=== PATIENT | female | born 2000 | race Caucasian/White ===

== ENCOUNTER 2022-06-19 11:02 | Emergency (ER) | payer OTHER, SELFPAY ==
--- NOTE | ~2022-06-19 | XR_ITS ---
EXAMINATION: XR knee LT 3V DATE: 06/19/2022 11:45 INDICATION: Left knee pain and swelling TECHNIQUE: Three views of the left knee were obtained. COMPARISON: None. FINDINGS: Alignment is normal. No fracture or osteochondral lesion. Joint spaces are normal with no e rosions. No joint effusion/synovitis. Soft tissues are unremarkable. IMPRESSION: 1. No acute osseous abnormality. Reviewed, dictated and finalized at location A.
[2022-06-19 11:33] VITALS: BP 104/75; PULSE 85; RESP 16; TEMP 36.6; O2SAT 100
--- NOTE | 2022-06-19 11:45 | ED.EXTPRO ---
HPI - Extremity Problem General Chief complaint: Extremity Problem,Nontraumatic Stated complaint: L KNEE WEAKNESS/BRUISING Source: patient and RN notes reviewed History of Present Illness HPI Narrative: 21-year-old presents to urgent care with left knee pain and swelling. Patient states she just woke up this morning with these symptoms and denies any known injury. Denies any numbness, tingling, fevers, chills, or other complaints. Some parts of this dictation were generated by voice recognition software and may contain typographical and/or grammatical inaccuracies. Related Data Home Medications Medication Instructions Recorded Confirmed norethindrone acetate 1 mg-ethinyl tablet 06/19/22 estradiol 20 mcg tablet Allergies Allergy/AdvReac Type Severity Reaction Status Date / Time No Known Allergies Allergy Verified 06/19/22 11:28 Review of Systems Review of Systems: CONSTITUTIONAL: Denies fever, chills, or sweats. EYES: Denies visual changes, redness, or discharge. ENT: Denies otalgia and sore throat CARDIOVASCULAR: Denies chest pain, palpitations, or edema. RESPIRATORY: Denies cough or dyspnea. GASTROINTESTINAL: Denies abdominal pain, nausea, vomiting, or diarrhea. GENITOURINARY: Denies dysuria or hematuria. SKIN: Denies rash or itching. MUSCULOSKELETAL: Left knee pain and swelling NEUROLOGIC: Denies headache, numbness, or weakness. Pertinent positives per HPI. PMFSH Comments At the time of my signature, I reviewed and agree with the nursing past medical, surgical, social, and family history. There is no relevant family history pertinent to the patient complaint. Exam Narrative: GENERAL: This is a well-nourished, well-developed patient, in no apparent distress. HEAD: normocephalic, atraumatic. EYES: PERRL. Sclera clear/white. Vision is grossly intact. EARS: External ears normal, auditory canals clear and without drainage. Hearing grossly intact. NOSE: External nose normal with no obvious nasal discharge, nares without redness, no rhinorrhea. THROAT: Mucous membranes moist. NECK: Neck supple, non-tender without lymphadenopathy, masses or thyromegaly. CARDIOVASCULAR: Regular rate and rhythm without murmurs, gallops, or rubs. RESPIRATORY: Clear to auscultation. Breath sounds equal bilaterally. No wheezes, rales, or rhonchi. SKIN: warm, intact with no suspicious lesions or rash, good texture and turgor. NEURO: awake, alert, and oriented to person, place and time. There were no obvious focal neurologic abnormalities. EXTREMITIES: left knee mild edema. no specific tenderness. Range of motion intact. Distal pulses present in affected extremity. Course Course Level of Care: Express Care Visit Vital Signs Vital signs: Vital Signs Temperature 98 F 06/19/22 11:33 Pulse Rate 85 06/19/22 11:33 Respiratory Rate 16 06/19/22 11:33 Blood Pressure 104/75 06/19/22 11:33 Pulse Oximetry 100 06/19/22 11:33 Temperature 98 F 06/19/22 11:33 Pulse Rate 85 06/19/22 11:33 Respiratory Rate 16 06/19/22 11:33 Blood Pressure 104/75 06/19/22 11:33 Pulse Oximetry 100 06/19/22 11:33 Reviewed MDM - Extremity (Nontraumatic) MDM Narrative Medical decision making narrative: Use the RICE method at home. May take ibuprofen and/or Tylenol if needed. If symptoms persist in 1 week after conservative treatment, follow-up with the hand specialist. Differential Diagnosis Differential diagnosis: Likely gout and other ( fracture, sprain) Imaging Data Radiologist's impression: [facility] [address] [place] [address] XRay Report Signed Patient: Nirmala Burns : 2000 MR#: [id number] Age/Sex: 21 / F Acct:[id number] Loc: [facility]? ? ADM Date: 06/19/22Attending Dr: Ordering Physician: Sandi Reddy APRN Date of Service: 06/19/22 Procedure(s): XR knee LT 3V Accession Number(s): [id number] cc:
== END 2022-06-19 12:05 | disposition home or self-care (01) ==
PROVIDERS: Emergency Provider Nurse Practitioner Family
DX: S83.92XA Sprain of unspecified site of left knee, initial encounter (principal); X58.XXXA Exposure to other specified factors, initial encounter
CPT/HCPCS: 73562; 99213; G0463